=== PATIENT | male | born 1965 | race Caucasian/White ===

== ENCOUNTER 2018-05-17 09:55 | Emergency (ER) | payer BC, OTHER ==
[2018-05-17 10:57] VITALS: BP 170/110
--- NOTE | 2018-05-17 10:59 | UC ---
Throat Pain/Nasal Jean HPI - HPI Summary HPI Summary: Patient is a 53-year-old male presenting to the ED with a sore throat 5 days. He states his symptoms began with fevers, chills, chest congestion, cough, earache and pressure. He states he still has all of these symptoms, however they have improved. Now his CC is sore throat, 9/10 constant and burning. He endorses dysphasia and odynophagia. Denies any airway compromise. Denies any SOB or CP. He states he is otherwise healthy and takes no medications. He has been taking ibuprofen without relief. - History of Current Complaint Chief Complaint: UCRespiratory Stated Complaint: SORE THROAT Time Seen by Provider: 05/17/18 10:03 Hx Obtained From: Patient Onset/Duration: Sudden Onset Severity: Moderate Pain Intensity: 0 Pain Scale Used: 0-10 Numeric Associated Signs & Symptoms: Positive: Dysphagia, Hoarseness - Epiglottits Risk Factors Epiglottis Risk Factors: Negative - Allergies/Home Medications Allergies/Adverse Reactions: Allergies Allergy/AdvReac Type Severity Reaction Status Date / Time INCENSE Allergy Severe Wheezing Uncoded 12/25/15 15:10 Home Medications: Home Medications D-Methorphan/PE/Acetaminophen [Gnp Day Time Cold/Flu Rel] 1 liq PO SEE INSTRUCTIONS 05/17/18 [History Confirmed 05/17/18] PMH/Surg Hx/FS Hx/Imm Hx Previously Healthy: Yes - Surgical History Surgical History: Yes Surgery Procedure, Year, and Place: TONSILLECTOMY, - Family History Known Family History: Positive: Hypertension - Social History Occupation: Employed Full-time Alcohol Use: None Alcohol Amount: RECOVERY SINCE 2010 Substance Use Type: None Smoking Status (MU): Former Smoker Type: Cigarettes Amount Used/How Often: 1 PACK/WEEK - Immunization History Most Recent Tetanus Shot: utd Review of Systems All Other Systems Reviewed And Are Negative: Yes Constitutional: Positive: Negative Skin: Positive: Negative ENT: Positive: Sore Throat, Nasal Discharge, Sinus Congestion, Sinus Pain/ Tenderness Respiratory: Positive: Negative Cardiovascular: Positive: Negative Motor: Positive: Negative Neurovascular: Positive: Negative Neurological: Positive: Negative Psychological: Positive: Negative Is Patient Immunocompromised?: No Physical Exam Triage Information Reviewed: Yes Appearance: Well-Appearing, Well-Nourished Vital Signs: Initial Vital Signs Temp 98 F 05/17/18 10:06 Pulse 105 05/17/18 10:06 Resp 18 05/17/18 10:06 BP 160/110 05/17/18 10:06 Pulse Ox 97 05/17/18 10:06 Vital Signs Reviewed: Yes Eye Exam: Normal Eyes: Positive: Conjunctiva Clear ENT: Positive: Pharyngeal erythema, Nasal congestion, Nasal drainage, Tonsillar swelling, Uvula midline. Negative: Tonsillar exudate, Trismus, Muffled voice, Hoarse voice, Dental tenderness, Sinus tenderness Neck exam: Normal Neck: Positive: No Lymphadenopathy Respiratory Exam: Normal Respiratory: Positive: Chest non-tender Cardiovascular Exam: Normal Cardiovascular: Positive: RRR Musculoskeletal Exam: Normal Musculoskeletal: Positive: Strength Intact Psychological: Positive: Normal Response To Family Skin Exam: Normal Throat Pain/Nasal Course/Dx - Course Course Of Treatment: Strep swab obtained, negative. Physical examination, patient has pharyngeal erythema with no tonsillar exudates. TMs normal without erythema. No LAD. CTA, RRR. Patient appears otherwise well. He is encouraged Chloraseptic and Cepacol. He is given prednisone 50 mg once daily 5 days. - Differential Dx/Diagnosis Differential Diagnosis/HQI/PQRI: Laryngitis, Pharyngitis, URI Provider Diagnosis: Pharyngitis Discharge - Sign-Out/Discharge Documenting (check all that apply): Patient Departure All imaging exams completed and their final reports reviewed: No Studies - Discharge Plan Condition: Stable Disposition: HOME Prescriptions: predniSONE TAB* [Deltasone TAB*] 50 mg PO DAILY #5 tab MDD 1 Patient Education Materials: Pharyngitis (ED) Forms: *Work Release Referrals: No Primary Care Phys,NOPCP [Primary Care Provider] - Additional Instructions: Prednisone once daily x 5 days Chloraseptic or Cepacol Lozenges Any Menthol cough drop will help clear your nasal passages Drink plenty of fluids Emergen-C and Zinc Humidifier in the home Rest x 3 days - Billing Disposition and Condition Condition: STABLE Disposition: Home
== END 2018-05-17 10:49 | disposition home or self-care (01) ==
LOC: UCEAST 09:55
DX: J02.9 Acute pharyngitis, unspecified (principal); Z87.891 Personal history of nicotine dependence
CPT/HCPCS: 87651; 99212; G0463